=== PATIENT | female | born 1960 | race Caucasian/White ===

== ENCOUNTER 2019-02-26 18:52 | Emergency (ER) | payer OTHER ==
--- NOTE | 2019-02-26 18:59 | PDOC ---
Rapid Medical Evaluation Time Seen by Provider: 02/26/19 18:56 Medical Evaluation: 02/26/19 18:56 HPI:Rectal pain x 2 months with foul odor today PE:No gross deficits ORDERS: Flat and Upright Discharge Disposition - Diagnosis Rectal pain - Referrals - Patient Instructions - Post Discharge Activity
[2019-02-26 19:02] VITALS: PULSE 82; TEMP 98.3; BMI 27.9
--- NOTE | 2019-02-26 21:17 | PDOC ---
*Physical Exam - Vital Signs Last Vital Signs Temp Pulse Resp BP Pulse Ox 98.3 F 82 16 115/98 100 02/26/19 18:58 02/26/19 18:58 02/26/19 18:58 02/26/19 18:58 02/26/19 18:58 ED Treatment Course - LABORATORY CBC & Chemistry Diagram: 02/26/19 22:50 02/26/19 22:50 Medical Decision Making - Medical Decision Making 02/26/19 21:17 Patient seen by the advanced practice provider under my direct supervision. Ancillary testing reviewed as necessary. I agree with plan as outlined by the advanced practice provider. *DC/Admit/Observation/Transfer Diagnosis at time of Disposition: Rectal pain - Referrals Referrals: ON STAFF,NOT [Primary Care Provider] - - Patient Instructions - Post Discharge Activity
--- NOTE | 2019-02-26 22:18 | PDOC ---
History of Present Illness - General Chief Complaint: Constipation Stated Complaint: PAIN RECTAL BLEEDING Time Seen by Provider: 02/26/19 18:56 - History of Present Illness Initial Comments: 02/26/19 22:12 CHIEF COMPLAINT: rectal pain HISTORY OF PRESENT ILLNESS: 58 yo F with hx of depression presents to ED with rectal pain and "foul odor" and near-syncope last night. Patient reports worsening rectal pain x 2 months. Has had constipation x a few months, after starting new medication for depression. Reports nausea x "a couple months" denies any vomiting. Last BM was 3 days ago. Denies rectal bleeding. Pain 5/ 10. Last week saw PCP Dr. Maddie espana. No recent travel or sick contacts. PAST MEDICAL HISTORY: Denies past medical history FAMILY HISTORY: Denies SOCIAL HISTORY: Denies tobacco, alcohol, illicit drug use. SURGICAL HISTORY: surgical hx: cholecystectomy, appendectomy, hysterectomy. ALLERGIES: No known drug allergies REVIEW OF SYSTEMS General/Constitutional: Denies fever or chills. Denies weakness, weight change. HEENT: Denies change in vision. Denies ear pain or discharge. Denies sore throat. Cardiovascular: Denies chest pain or shortness of breath. Respiratory: Denies cough, wheezing, or hemoptysis. Gastrointestinal: Rectal pain and foul odor. Constipation x "a while." Denies rectal bleeding. Genitourinary: Denies dysuria, frequency, or change in urination. Musculoskeletal: Denies joint or muscle swelling or pain. Denies neck or back pain. Skin and breasts: Denies rash or easy bruising. Neurologic: Denies headache, vertigo, loss of consciousness, or loss of sensation. PHYSICAL EXAM General Appearance: Well-appearing, appropriately dressed. No apparent distress. HEENT: EOMI, PERRLA, normal ENT inspection, normal voice, TMs normal, pharynx normal. No conjunctival pallor. No photophobia, scleral icterus. Neck: Supple. Trachea midline. No tenderness, rigidity, carotid bruit, stridor , lymphadenopathy, or thyromegaly. Respiratory/Chest: Lungs CTAB. No shortness of breath, chest tenderness, respiratory distress, accessory muscle use. No crackles, rales, rhonchi, stridor , wheezing, dullness Cardiovascular: RRR. S1, S2. No JVD, murmur, bradycardia, tachycardia. Vascular Pulses: Dorsalis-Pedis (R): 2+, Dorsalis-Pedis (L): 2+ Gastrointestinal/Abdominal: Normal bowel sounds. Abdomen soft, non-distended. No tenderness or rebound tenderness. No organomegaly, pulsatile mass, guarding , hernia, hepatomegaly, splenomegaly. Rectal exam: No hemorrhoids, fissure, or bleeding appreciated. Musculoskeletal/Extremities: Normal inspection. FROM of all extremities, normal capillary refill. Pelvis Stable. No CVA tenderness. No tenderness to extremities, pedal edema, swelling, erythema or deformity. Integumentary: Appropriate color, dry, warm. No cyanosis, erythema, jaundice or rash Neurologic: marketing operations coordinator II-XII intact. Fully oriented, alert. Appropriate mood/affect. Motor strength 5/5. No appreciable EOM palsy, facial droop or sensory deficit. Past History - Past Medical History Allergies/Adverse Reactions: Allergies Allergy/AdvReac Type Severity Reaction Status Date / Time No Known Allergies Allergy Verified 02/26/19 18:57 Home Medications: Ambulatory Orders Docusate Sodium [Colace] 100 mg PO DAILY #14 capsule 02/26/19 Lactulose (Oral Use) [Cephulac -] 20 gm PO DAILY #1 bottle 02/26/19 Polyethylene Glycol 3350 [Miralax (For Bowel Prep) -] 17 gm PO DAILY #1 bottle 02/26/19 - Suicide/Smoking/Psychosocial Hx Smoking History: Never smoked Information on smoking cessation initiated: No Hx Alcohol Use: No Drug/Substance Use Hx: No *Physical Exam - Vital Signs Last Vital Signs Temp Pulse Resp BP Pulse Ox 98.3 F 82 16 115/98 100 02/26/19 18:58 02/26/19 18:58 02/26/19 18:58 02/26/19 18:58 02/26/19 18:58 ED Treatment Course - LABORATORY CBC & Chemistry Diagram: 02/26/19 22:50 02/26/19 22:50 Medical Decision Making - Medical Decision Making 02/26/19 23:24 58 yo F with hx of depression presents to ED with rectal pain and "foul odor" and near-syncope last night. -labs -ekg -abd x-ray 02/27/19 23:34 x-ray findings consistent with constipation. laxatives, stool softener rx sent to pharm. pt to f/u with GI. *DC/Admit/Observation/Transfer Diagnosis at time of Disposition: Rectal pain - Discharge Dispostion Disposition: HOME Condition at time of disposition: Stable Decision to Admit order: No - Prescriptions Prescriptions: Docusate Sodium [Colace] 100 mg PO DAILY #14 capsule Lactulose (Oral Use) [Cephulac -] 20 gm PO DAILY #1 bottle Polyethylene Glycol 3350 [Miralax (For Bowel Prep) -] 17 gm PO DAILY #1 bottle - Referrals Referrals: Jeff Alba MD [Staff Physician] - - Patient Instructions Printed Discharge Instructions: Constipation (Alternative Therapy), Increased Dietary Fiber May Improve Constipation Conditions With Pelvic Bang, DI for Constipation Additional Instructions: Please take medications as prescribed. Follow up with GI if symptoms do not improve in 3-5 days. If you develop any persistent vomiting, fever, worsening pain, or any new or worsening symptoms, please return to the ER. - Post Discharge Activity
[2019-02-26 23:03] LABS: BASO % 0.3 % (0-2.0); EOS % 0.9 % (0-4.5); HEMATOCRIT 36.7 % (32.4-45.2); HEMOGLOBIN 12.4 GM/dL (10.7-15.3); LYMPH % 30.2 % (8-40); MCH 32.5 pg (25.7-33.7); MCHC 33.8 g/dl (32.0-36.0); MEAN CELL VOLUME 96.1 fl (80-96); MEAN PLT VOLUME 7.3 fl (7.5-11.1); MONO % 8.4 % (3.8-10.2); NEUT % 60.2 % (42.8-82.8); PLATELET COUNT 296 K/MM3 (134-434); RBC 3.82 M/mm3 (3.60-5.2); RDW 13.1 % (11.6-15.6); WHITE BLOOD COUNT 4.6 K/mm3 (4.0-10.0)
[2019-02-26 23:33] LABS: ALBUMIN 3.8 g/dl (3.4-5.0); BILIRUBIN,TOTAL 0.4 mg/dL (0.2-1); BLOOD UREA NITROGEN 18.4 mg/dL (7-18); CALCIUM 8.8 mg/dL (8.5-10.1); CREATININE 0.8 mg/dL (0.55-1.3); POTASSIUM 3.7 mmol/L (3.5-5.1); TOT PROT 7.8 g/dl (6.4-8.2)
[2019-02-27 00:41] VITALS: BP 116/92
--- NOTE | 2019-02-27 11:00 | EKG ---
Test Reason : Blood Pressure : / mmHG Vent. Rate : 076 BPM Atrial Rate : 076 BPM P-R Int : 176 ms QRS Dur : 078 ms QT Int : 406 ms P-R-T Axes : 044 044 056 degrees QTc Int : 456 ms NORMAL SINUS RHYTHM NORMAL ECG NO PREVIOUS ECGS AVAILABLE Confirmed by CHLOÉ WILLOUGHBY MD ([id number]) on 02/27/2019 11:00:09 AM Referred By: Confirmed By:CHLOÉ WILLOUGHBY MD
== END 2019-02-27 00:41 | disposition home or self-care (01) ==
LOC: JERFT 18:52 → JER 18:52
DX: K62.89 Other specified diseases of anus and rectum (principal); F32.9 Major depressive disorder, single episode, unspecified
CPT/HCPCS: 36415; 74019-TC-FY; 80053; 82272; 85025; 93005; 93010; 99282-25